=== PATIENT | female | born 1960 | race Caucasian/White ===

== ENCOUNTER 2018-10-02 17:04 | Inpatient (IN) | payer OTHER ==
[~2018-10-02] VITALS: Ht 170.2 cm; Wt 50.3 kg
[2018-10-02 17:12] VITALS: BP 141/72
[2018-10-02] MEDS ORDERED: LEVOTHYROXINE100 MC1 IV (17:15)
[2018-10-02] MEDS ORDERED: DESYREL150 MG PO (17:16)
[2018-10-02] MEDS ORDERED: ZOLOFT25 MG PO (17:16)
[2018-10-02 17:52] LABS: HEMATOCRIT 39.8 % (37.0-47.0); HEMOGLOBIN 13.1 gm/dL (12.0-15.0); MCH 29.2 pg (26.0-34.0); MCHC 32.9 g/dL (28.0-37.0); MCV 88.6 fL (80.0-100.0); MPV 7.9 fl. (7.2-11.1); NUCLEATED RBCS 0 /100WBC; PLATELET COUNT* 364 thou/uL (150-400); RBC 4.49 mil/uL (4.20-5.00); RDW-CV 15.7 % (10.5-14.5); WBC 11.2 thou/uL (4.0-11.0)
[2018-10-02 17:59] LABS: INFLUENZA A ANTIGEN None Detected (None Detect); INFLUENZA B ANTIGEN None Detected (None Detect)
[2018-10-02 18:00] LABS: ANION GAP 7 mmol/L (7-16); BUN 11 mg/dL (7-18); CALCIUM 8.9 mg/dL (8.5-10.1); CHLORIDE 96 mmol/L (98-107); CO2 30 mmol/L (21-32); CREATININE 0.7 mg/dL (0.6-1.3); GLUCOSE 110 mg/dL (70-99); POTASSIUM 3.1 mmol/L (3.5-5.1); SODIUM 133 mmol/L (136-145)
[2018-10-02 18:07] LABS: ALBUMIN 2.7 g/dL (3.4-5.0); ALKALINE PHOSPHATASE 190 U/L (46-116); SGOT 41 U/L (15-37); SGPT 33 U/L (30-65); TOTAL BILIRUBIN 0.5 mg/dL (<0.1-1.0); TOTAL PROTEIN 8.1 g/dL (6.4-8.2); TROPONIN-I LEVEL <0.06 ng/mL (<0.06)
[2018-10-02 18:22] LABS: ABSOLUTE LYMPHOCYTES 1.6 thou/uL (0.8-5.3); ABSOLUTE NEUTROPHILS 8.6 thou/uL (1.6-8.1); PLATELET ESTIMATE ADEQUATE
[2018-10-02 19:15] VITALS: BP 117/57
--- NOTE | 2018-10-02 19:36 | NUR ---
RECIEVED REPORT AND ASSUMED CARE OF PT AT 1900. STARTED NORMAL SALINE AT 100ML/HR AND AZITHROMYCIN. [facility] CALLED REGARDING ADMIT TO ROOM 316. RN UNAVAILABLE AT THIS TIME. PT RESTING QUIETLY AT THIS TIME.
--- NOTE | 2018-10-02 19:45 | NUR ---
REPORT GIVEN TO TREY RHOADES ON [address] [facility] AT THIS TIME
[2018-10-02 22:00] VITALS: BP 97/42
[2018-10-03 00:06] VITALS: BP 98/54
[2018-10-03] MEDS ORDERED: METHIMAZOLE10 MG PO (03:42)
[2018-10-03] MEDS ORDERED: TRAZODONE HCL100 MG PO (03:43)
[2018-10-03 04:00] VITALS: BP 91/38
--- NOTE | 2018-10-03 06:11 | NUR ---
REPORT RECIEVED FROM ER. PT ADMITTED TO ROOM 316. PT ORIENTED TO ROOM, CALL LIGHT SHOWN, FALL AGREEMENT WENT OVER, PT STATED UNDERSTANDING. ADMISSION DOCUMENTED. NEW IV STARTED PER PT REQUEST, FLUIDS INFUSING. NO REPORTS OF PAIN OR NAUSEA. WILL CONTINUE WITH PLAN OF CARE.
[2018-10-03 09:15] VITALS: BP 100/56
[2018-10-03 09:33] LABS: CALCIUM 8.8 mg/dL (8.5-10.1); CREATININE 0.8 mg/dL (0.6-1.3); MAGNESIUM 2.5 mg/dL (1.8-2.4)
--- NOTE | 2018-10-03 13:51 | NUR ---
Nutrition: Pt seen for low BMI. Pt stated she used to weigh 154# before she was diagnosed with Graves. She went down to 98# two months ago d/t stress and Graves, but is now back up to 111#. She has a fair appetite. Didn't touch lunch tray b/c she claimed it was cold upon arrival. RD gave pt a box lunch instead, which pt was grateful for. She drinks [employer] Instant BKFST at home b.i.d. She likes Ensure yenni - RD will order b.i.d. Alb 2.7, prealb 8.3 - severely depleted protein stores. Mild risk at this time. Underweight R/T thyroid issues AEB pt self report, BMI 17.4. Supplement: Ensure b.i.d. Weight: no loss from 111#. Food/vahid intake: >60% of meals/supplements.
--- NOTE | 2018-10-03 17:34 | NUR ---
ASSESSMENT COMPLETE. PT ALERT AND ORIENTED X4. PT REPORTS "FEELING LIKE ". PT IS CURRENTLY ON IV FLUIDS AND IV ABX. PAIN MEDICATION GIVEN PRN FOR BODY ACHES. ENSURE STARTED TWICE DAILY. PT IS ON 2L PER NC, SHE DOES NOT WEAR O2 AT HOME. INFECTIOUS DISEASE CONSULT, SEE ORDERS. FLU NEGATIVE. PT IS UP STANDBY ASSIST. SCD'S IN PLACE. SEE ASSESSMENT AND VITALS FOR OTHER DETAILS. CALL LIGHT WITHIN REACH, WILL CONTINUE PLAN OF CARE
[2018-10-04] VITALS: BP 102/43
--- NOTE | 2018-10-04 05:25 | NUR ---
PT SLEPT ON AND OFF THIS SHIFT. ASSESSMENT DOCUMENTED. MEDS GIVEN PER E-MAR. IV PATENT, FLUIDS INFUSING. ANXIETY MEDS GIVEN PER E-MAR. PT REPORTS HER PAIN IS IMPROVING. WILL CONTINUE WITH PLAN OF CARE.
[2018-10-04 05:33] LABS: HEMATOCRIT 32.3 % (37.0-47.0); MCH 28.5 pg (26.0-34.0); MCHC 32.2 g/dL (28.0-37.0); MCV 88.6 fL (80.0-100.0); MPV 7.8 fl. (7.2-11.1); NUCLEATED RBCS 0 /100WBC; PLATELET COUNT* 377 thou/uL (150-400); RBC 3.64 mil/uL (4.20-5.00); RDW-CV 16.1 % (10.5-14.5); WBC 14.1 thou/uL (4.0-11.0)
[2018-10-04 05:37] LABS: HEMOGLOBIN 10.4 gm/dL (12.0-15.0)
[2018-10-04 06:28] LABS: URINE BILIRUBIN NEGATIVE (Negative); URINE BLOOD NEGATIVE (Negative); URINE CLARITY CLEAR; URINE COLOR YELLOW; URINE GLUCOSE-RANDOM 2+ (Negative); URINE KETONES NEGATIVE (Negative); URINE LEUKOCYTES NEGATIVE (Negative); URINE NITRITE NEGATIVE (Negative); URINE PROTEIN TRACE (Negative); URINE SPECIFIC GRAVITY >= 1.030 (1.005-1.030); URINE UROBILINOGEN 0.2 E.U./dl (0.2-1.0)
[2018-10-04 06:41] LABS: ABSOLUTE LYMPHOCYTES 0.3 thou/uL (0.8-5.3); ABSOLUTE MONOCYTES 0.3 thou/uL (0.0-1.2); ABSOLUTE NEUTROPHILS 13.5 thou/uL (1.6-8.1); HYPOCHROMASIA 2+; MICROCYTES 2+
[2018-10-04 06:42] LABS: PLATELET ESTIMATE ADEQUATE
[2018-10-04 07:38] VITALS: BP 123/64
--- NOTE | 2018-10-04 11:43 | CON ---
[address] [address] CONSULTATION Name: STEVE SANTO Room: [address] M.R.#: [id number] Admission: 10/02/18 Attend Phys: Thiago Roberts MD Discharge: Date of : 60 Report #: [id number] THIS REPORT FOR: //name// CC: Thiago Miller DATE OF SERVICE: 10/03/2018 ATTENDING PHYSICIAN: Thiago Roberts M.D. REASON FOR EVALUATION: Pneumonitis as a complication of recent influenza A infection, complicated by some respiratory failure. HISTORY OF PRESENT ILLNESS: Chart reviewed, the patient examined. This is a 57-year-old woman with history of Graves' thyroiditis, who developed a clinical picture of influenza A. Apparently it was confirmed. She was treated with oseltamivir, however, had developed a secondary progressive dyspnea with cough productive of brownish sputum, intermittent fevers, some of which have been high-grade, poor p.o. intake. She had had significant weight loss as a result of marital issues. She has regained back roughly 9-10 pounds recently. She does have generalized arthralgias and myalgias, new onset eruptions. 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 She was given empiric therapy with ceftriaxone and azithromycin. She does feel marginally better at this point. She is not encephalopathic. ALLERGIES: None known. MEDICATIONS: Include azithromycin, guaifenesin, alprazolam, ipratropium and albuterol inhaler, ceftriaxone. PAST MEDICAL HISTORY: History of Graves' disease and anxiety. SOCIAL HISTORY: Former smoker, quit roughly 3 years ago. Occasional ethanol, no illicit drug use. FAMILY HISTORY: Noncontributory. REVIEW OF SYSTEMS: Otherwise unremarkable with the exception of the above 10-point review of systems. PHYSICAL EXAMINATION: GENERAL: She appears ill, not overtly toxic. She is moderately uncomfortable. She does have fairly frequent cough during the exam. She appears to be undernourished. VITAL SIGNS: T-max 101.7, more recently 98.6. Pulse 66, respirations 20, blood pressure 100/56. [place] [address] CONSULTATION Name: STEVE SANTO Room: [address]#: [id number] Admission: 10/02/18 Attend Phys: Thiago Roberts MD Discharge: Date of : 60 Report #: [id number] SKIN: Warm, dry, no rashes. HEENT: Normocephalic. NECK: Supple. LUNGS: Scattered coarse breath sounds bilaterally. HEART: Regular. I do not appreciate a murmur. ABDOMEN: Soft, nontender. There are no peritoneal signs. GENITOURINARY: Deferred. RECTAL: Deferred. LABORATORY DATA: Chest x-ray showed moderate diffuse interstitial infiltrate with focal parenchymal infiltrates in the lower lungs. Influenza antigen was negative at this institution. Electrolytes: Sodium 133, potassium 3.1, chloride 96, bicarbonate is 30, anion gap of 7, BUN and creatinine 11 and 0.7, glucose 110. AST of 41, ALT of 33, albumin of 2.7, total protein of 8.1. Lactic acid 1.4. CBC: White count of 11.2, H and H 13.1 and 39.8, platelets of 364, neutrophilia. Blood cultures negative thus far. ASSESSMENT: Influenza complicated by secondary bacterial pneumonitis. Continue empiric antimicrobial therapy, collect sputum sample. Urinary antigen for pneumococcus. Do an MRSA swab. Given the elevated globulin, we will do a serum protein electrophoresis as well and see how she does, clinically monitor. She is on 2 liters. I did discuss with her. She left her due to infidelity. She had extensive STD evaluation, which was all unremarkable. <ELECTRONICALLY SIGNED> By: Kenrick Suresh MD 10/04/18 [id number] [id number] Suresh MD /nt
[2018-10-04 14:23] VITALS: BP 133/65
[2018-10-04 16:06] VITALS: BP 163/71
--- NOTE | 2018-10-04 17:21 | NUR ---
ASSESSMENT COMPLETE. PT TEARFUL AND ANXIOUS MOST OF THE DAY. XANAX GIVEN PRN. HOME MEDICATIONS FOR DEPRESSION STARTED TODAY BY PROVIDER. PT IS ALERT AND ORIENTED X4. PT GIVEN PRN PAIN MEDICATION. DENIES N/V. TOLERATING MEALS. PT IS ON ROOM AIR WITH BRIJESHE SATS. VSS. PT IS UP STANDBY ASSIST. SEE ASSESSMENT AND VITALS FOR OTHER DETAILS. CALL LIGHT WITHIN REACH, WILL CONTINUE PLAN OF CARE
[2018-10-04 20:15] VITALS: BP 141/76
--- NOTE | 2018-10-05 06:10 | NUR ---
PT SLEPT MOST OF SHIFT. ASSESSMENT DOCUMENTED. MEDS GIVEN PER E-MAR. IV PATENT, FLUIDS INFUSING. PT TEARFUL THIS SHIFT, ASKING TO TALK WITH A CLINICAL REGISTERED NURSE TODAY. PAIN AND ANXIETY MEDS GIVEN PER E-MAR. WILL CONTINUE WITH PLAN OF CARE.
[2018-10-05 08:30] VITALS: BP 109/68
[2018-10-05] MEDS ORDERED: GUAIFENESIN ER600 MG PO (14:28)
[2018-10-05] MEDS ORDERED: XANAX 0.25 MG0.25 MG PO (14:33)
[2018-10-05] MEDS ORDERED: VENTOLIN HFA 1818 GM INH (14:34)
[2018-10-05] MEDS ORDERED: PREDNISONE 10 M10 MG PO (14:42)
[2018-10-05] MEDS ORDERED: CEFUROXIME500 MG PO (14:50)
[2018-10-05 15:08] VITALS: BP 109/68
--- NOTE | 2018-10-05 16:10 | NUR ---
PATIENT DISCHARGED TO HOME. DISCHARGE PAPERS REVIEWED AND SIGNED. PRESCRIPTION AND INFORMATION SHEETS GIVEN. IV REMOVED. PATIENT DENIES ANY FURTHER NEEDS. PATIENT TAKEN BY WHEELCAHIR TO EXIT. LEFT BY OWN VEHICLE.
[2018-10-06 16:08] LABS: GLOBULIN TOTAL 3.7 g/dL (2.2-3.9); M-SPIKE Not Observed g/dL (Not Observed)
== END 2018-10-05 16:10 | disposition home or self-care (01) | DRG 193 ==
LOC: M.ERS 17:04 → M.TBA-ER 18:13 → M.3W 18:13
PROVIDERS: Family Medicine; Physician Assistant; Specialist; ADMIT Internal Medicine
DX: J11.08 Influenza due to unidentified influenza virus with specified pneumonia (principal); J96.01 Acute respiratory failure with hypoxia; G92 Toxic encephalopathy; E46 Unspecified protein-calorie malnutrition; R65.10 Systemic inflammatory response syndrome (SIRS) of non-infectious origin without acute organ dysfunction; J44.1 Chronic obstructive pulmonary disease with (acute) exacerbation; Z68.1 Body mass index [BMI] 19.9 or less, adult; J44.0 Chronic obstructive pulmonary disease with (acute) lower respiratory infection; J12.9 Viral pneumonia, unspecified; E87.6 Hypokalemia; F41.9 Anxiety disorder, unspecified; J15.9 Unspecified bacterial pneumonia; E05.00 Thyrotoxicosis with diffuse goiter without thyrotoxic crisis or storm; Z87.891 Personal history of nicotine dependence; Z79.899 Other long term (current) drug therapy

== ENCOUNTER → 2019-06-11 | Outpatient (CLI) | payer OTHER ==
[~2019-06-11] MED LIST: CEFUROXIME500 MG PO; DESYREL150 MG PO; GUAIFENESIN ER600 MG PO; LEVOTHYROXINE100 MC1 IV; METHIMAZOLE10 MG PO; PREDNISONE 10 M10 MG PO; TRAZODONE HCL100 MG PO; VENTOLIN HFA 1818 GM INH; XANAX 0.25 MG0.25 MG PO; ZOLOFT25 MG PO
== END ==
LOC: M.ULTRA 14:53
DX: R60.9 Edema, unspecified (principal); M79.604 Pain in right leg